=== PATIENT | male | born 1990 | race Caucasian/White ===

== ENCOUNTER 2021-11-28 16:23 | Emergency (ER) | payer MEDICAID ==
--- NOTE | 2021-11-28 16:57 | NUR ---
CALLED X1. NO SHOW. 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 Addendum: 11/28/21 at 1815 by [email or web address] PATIENT LEFT WITHOUT BEING SEEN BY . NO FURTHER CARE PROVIDED FOR PATIENT.
--- NOTE | 2021-11-28 17:06 | NUR ---
SECOND ATTEMPT TO TRIAGE PT, NO ANSWER
== END 2021-11-28 16:57 | disposition left against medical advice (07) ==
LOC: MED 16:23
DX: M79.603 Pain in arm, unspecified (principal); Z53.21 Procedure and treatment not carried out due to patient leaving prior to being seen by health care provider